=== PATIENT | male | born 1990 | race African-American/Black ===

== ENCOUNTER → 2019-08-13 | Outpatient (CLI) | payer OTHER ==
--- NOTE | 2019-08-14 09:14 | REP ---
Clinical: Essential Hypertension. Technique: Carmona scale and color Doppler evaluation of the kidneys and renal vasculature using curved array transducer. Findings: The kidneys are essentially normal in contour size and echogenicity and reniform shape without hydronephrosis, nephrolithiasis, cystic or renal mass lesion. Right kidney measures 9.5 x 6.5 x 4.7 cm . Left kidney measures 10.0 x 5.0 x 6.1 cm. Bladder is incompletely distended and grossly normal by current evaluation. Color Doppler evaluation of the renal vasculature demonstrates normal arterial wave patterns, velocities, renal aortic ratios, resistive indices and the acceleration time. No sonographic evidence for renal arterial stenosis noted. Renal vein is patent. Right Kidney: Peak arterial velocity: 81.6 cm/sec . Renal aortic ratio: 1.1 . Resistive indices: 0.47 - 0.48 . Acceleration times: 0.014 - 0.036 . Left kidney: Peak arterial velocity: 86.7 cm/sec . Renal aortic ratio: 1.1 . Resistive indices: 0.49 - 0.52 . Acceleration times: 0.025 - 0.045 . Impression: Normal ultrasound examination. No evidence for renal arterial stenosis. Electronically Signed by Amado Juarez MD 08/14/2019 09:05 A
== END ==
LOC: M RAD 07:55
PROVIDERS: ATTEND Internal Medicine Cardiovascular Disease
DX: I10 Essential (primary) hypertension (principal)

== ENCOUNTER 2019-12-31 23:56 | Emergency (ER) | payer OTHER ==
[2020-01-01] MEDS ORDERED: hydroCHLOROthiazide 12.5 MG CAPSULE As Ordered ONE (05:11)
[2020-01-01] MEDS ORDERED: METOCLOPRAMIDE INJ 10MG/2ML VIAL (J2765 PER 1) As Ordered ONE (05:11)
[2020-01-01] MEDS ORDERED: LOSARTAN 25 MG TAB As Ordered ONE (05:12)
[2020-01-01] MEDS ORDERED: ISOVUE-370 76% 100ML VIAL As Ordered ONE (08:49)
[2020-01-01] MEDS ORDERED: KETOROLAC 30 MG/ML 1ML VIAL As Ordered ONE (09:21)
[2020-02-08 11:53] LABS: INR 0.95; PARTIAL THROMBOPLASTIN TIME 27.6 SECONDS (25.0-38.4); PROTHROMBIN TIME 12.9 SECONDS (11.8-14.0)
[2020-02-08 13:41] LABS: BASO % 0.2 % (0.0-1.0); EOS # 0.1 10^3/uL (0.0-0.5); EOS % 2.7 % (0.0-3.0); HEMATOCRIT 43.1 % (42.0-52.0); HEMOGLOBIN 14.5 g/dl (13.5-17.5); LYMPH # 2.6 10^3/uL (1.5-5.0); LYMPH % 53.1 % (24.0-44.0); MEAN CORPUSCULAR HEMOGLOBIN 29.8 pg (27.0-33.0); MEAN CORPUSCULAR HGB CONC 33.6 g/dl (32.0-36.5); MEAN CORPUSCULAR VOLUME 88.5 fl (80.0-96.0); MONO # 0.4 10^3/uL (0.0-0.8); NEUTROPHILS # 1.7 10^3/uL (1.5-8.5); NEUTROPHILS % 34.8 % (36.0-66.0); PLATELET COUNT, AUTOMATED 222 10^3/uL (150-450); RED BLOOD COUNT 4.87 10^6/uL (4.30-6.10); WHITE BLOOD COUNT 4.9 10^3/uL (4.0-10.0)
--- NOTE | 2020-02-19 13:38 | ECGEPIP ---
SINUS RHYTHM WITH SINUS ARRHYTHMIA NONSPECIFIC ST & T-WAVE ABNORMALITY BORDERLINE ECG NO OLD AVAILABLE SEE SCANNED DOWNTIME REPORT MTDD
--- NOTE | 2020-02-23 07:33 | REP ---
CT PULMONARY ANGIOGRAM WITH IV CONTRAST: HISTORY: Hypertension, shortness of breath. Rule out pulmonary embolus. CONTRAST DOSE: 75 ml of intravenous Isovue 370 is administered. COMPARISON: None available. FINDINGS: There is good opacification of the pulmonary arterial tree. There is no evidence of filling defect or vessel cutoff to suggest pulmonary embolism. Maximum intensity projection and MPR images show no filling defect. No infiltrate or pulmonary mass or significant pulmonary nodule is seen. No pleural or pericardial effusion is seen. There is no evidence of hilar or mediastinal mass or adenopathy. The visualized upper abdominal structures are unremarkable. IMPRESSION: No acute disease. No CT evidence of pulmonary embolus. MTDD
--- NOTE | 2020-02-23 07:35 | REP ---
CHEST X-RAY: TECHNIQUE: PA and lateral COMPARISON: None. FINDINGS: Mediastinum and cardiac silhouette are normal. Lung almodovar are clear. No focal consolidation, effusion or pneumothorax. Skeletal structures are intact. IMPRESSION: Normal chest x-ray. No focal consolidation or effusion. MTDD
[2020-03-12 12:20] LABS: BLOOD UREA NITROGEN 14 MG/DL (7-18); GLUCOSE, FASTING 106 MG/DL (70-100)
[2020-03-12 12:21] LABS: ALBUMIN 3.9 GM/DL (3.2-5.2); ALT/SGPT 43 IU/L (0-32); BILIRUBIN,DIRECT < 0.1 MG/DL (0.0-0.2); BILIRUBIN,TOTAL 0.2 MG/DL (0.2-1.0); CALCIUM LEVEL 9.5 MG/DL (8.5-10.1); CARBON DIOXIDE LEVEL 30 mmol/L (20-29); CHLORIDE LEVEL 106 MEQ/L (98-107); CK-MB VALUE MASS 1.2 NG/ML (<3.6); CPK CREATINE PHOSPHOKINASE 535 U/L (39-308); CREATININE FOR GFR 1.19 MG/DL (0.70-1.30); GLOMERULAR FILTRATION RATE > 60.0 (>60); MB/CK RELATIVE INDEX 0.22 (< OR =4); POTASSIUM SERUM 4.1 MEQ/L (3.5-5.1); SODIUM LEVEL 142 MEQ/L (136-145); TOTAL PROTEIN 7.5 GM/DL (6.4-8.2); TROPONIN I 0.02 NG/ML (< 0.10)
== END 2020-01-01 06:41 | disposition home or self-care (01) ==
LOC: M ED 23:56
DX: I10 Essential (primary) hypertension (principal); B34.9 Viral infection, unspecified; Z79.899 Other long term (current) drug therapy
CPT/HCPCS: 70450; 71046; 71275; 80048; 80076; 82550; 82553; 84484; 85025; 85610; 85730; 87486; 87581; 87633; 87798; 93005; 96374; 96375; 99284; J1885; J2765; Q9967

== ENCOUNTER → 2021-06-10 | Outpatient (CLI) | payer OTHER | LOC: M RAD 10:31 | PROVIDERS: ATTEND Student in an Organized Health Care Education/Training Program | DX: S62.610A Displaced fracture of proximal phalanx of right index finger, initial encounter for closed fracture (principal); X58.XXXA Exposure to other specified factors, initial encounter; Y92.9 Unspecified place or not applicable; Y99.9 Unspecified external cause status ==

== ENCOUNTER → 2022-03-01 | Outpatient (CLI) | payer OTHER | LOC: M CARPUL 09:48 | PROVIDERS: ATTEND Internal Medicine Cardiovascular Disease | DX: R06.09 Other forms of dyspnea (principal) ==

== ENCOUNTER → 2022-03-30 | Outpatient (CLI) | payer OTHER ==
[~2022-03-30] MED LIST: ISOVUE-370 76% 100ML VIAL As Ordered ONE
== END ==
LOC: M RAD 09:10
PROVIDERS: ATTEND Physician Assistant
DX: R31.0 Gross hematuria (principal)
CPT/HCPCS: 74178; Q9967

== ENCOUNTER → 2022-08-02 | Outpatient (CLI) | payer OTHER | LOC: M PLAIMG 12:59 | PROVIDERS: ATTEND Physician Assistant | DX: M54.50 Low back pain, unspecified (principal) ==

== ENCOUNTER 2022-10-03 20:18 | Emergency (ER) | payer OTHER ==
[~2022-10-03] VITALS: Ht 180.3 cm; Wt 137.0 kg
[2022-10-03] MEDS ORDERED: LOTR10CA PO (20:30)
[2022-10-04] MEDS ORDERED: KETOROLAC 60MG 2ML VIAL IM ONE (00:50)
[2022-10-04] MEDS ORDERED: LIDOCAINE 5% (LIDODERM) PATCH TD ONE (00:50)
[2022-10-04] MEDS ORDERED: methocarbamoL 750 MG TAB PO ONE (00:50)
[2022-10-04] MEDS ORDERED: GABAPENTIN 300 MG CAP PO ONE (00:50)
[2022-10-04] MEDS ORDERED: traMADol 50 MG TAB PO ONE (02:30)
[2022-10-04] MEDS ORDERED: IBUP-1022 PO (02:32)
[2022-10-04] MEDS ORDERED: METH-1165 PO (02:32)
[2022-10-04] MEDS ORDERED: TRAM50TA2 PO ×2 (02:32→16:50)
[2022-10-04 02:42] VITALS: BP 136/76
== END 2022-10-04 02:44 | disposition home or self-care (01) ==
LOC: M ED 20:18
DX: M54.50 Low back pain, unspecified (principal); M54.17 Radiculopathy, lumbosacral region; I10 Essential (primary) hypertension; Z79.899 Other long term (current) drug therapy
CPT/HCPCS: 93971; 96372; 99283; J1885

== ENCOUNTER → 2022-12-27 | Outpatient (REF) ==
[~2022-12-27] MED LIST changes: +IBUP-1022 PO; -ISOVUE-370 76% 100ML VIAL As Ordered ONE; +LOTR10CA PO; +METH-1165 PO; +TRAM50TA2 PO
== END ==
LOC: M PLAIMG 10:18
PROVIDERS: ATTEND Internal Medicine
DX: R52 Pain, unspecified (principal)